=== PATIENT | male | born 1980 | race Caucasian/White ===

== ENCOUNTER 2019-03-14 08:41 | Inpatient (IN) | payer OTHER ==
[2019-03-14 09:14] VITALS: BMI 35.3
--- NOTE | 2019-03-14 10:03 | HP ---
CIWA Score - Admission Criteria [facility] Guidelines: Admission for Medically Managed Detox: Requires at least one of the followin. CIWA greater than 12 2. Seizures within the past 24 hours 3. Delirium tremens within the past 24 hours 4. Hallucinations within the past 24 hours 5. Acute intervention needed for co occurring medical disorder 6. Acute intervention needed for co occurring psychiatric disorder 7. Severe withdrawal that cannot be handled at a lower level of care (continued vomiting, continued diarrhea, abnormal vital signs) requiring intravenous medication and/or fluids 8. Admission ROS S - HPI Allergies/Adverse Reactions: Allergies Allergy/AdvReac Type Severity Reaction Status Date / Time No Known Drug Allergies Allergy Verified 03/14/19 09:09 BONELESS CHICKEN Allergy Intermediate Itching Uncoded 03/14/19 09:09 TILAPIA Allergy Intermediate Itching Uncoded 03/14/19 09:09 History of Present Illness: pt here requesting rehab for cocaine use , reports use x 1 year , denies use prior to 1 year ago , denies IVDU , current daily use 40 $ /day , latest use 2 days ago , crack cocaine 40 4/ day , this is the pt's first tx episode . Denies prior outpt program . Denies other illicits , denies ETOH tobacco : / ppd not interested in smoking cessation PMHX : asthma since teens ( [place] ) PSHx : testicular torsion teens PSych : denies . Denies current SI / HI SHx : homeless , lives in [facility] , unemployed , finances habit through theft , denies current legal issues . Exam Limitations: No Limitations - Ebola screening Have you traveled outside of the country in the last 21 days: No (N) Have you had contact with anyone from an Ebola affected area: No Do you have a fever: No - Review of Systems Constitutional: No Symptoms Reported EENT: reports: No Symptoms Reported Respiratory: reports: No Symptoms reported Cardiac: reports: No Symptoms Reported GI: reports: No Symptoms Reported : reports: No Symptoms Reported Musculoskeletal: reports: No Symptoms Reported Integumentary: reports: No Symptoms Reported Neuro: reports: No Symptoms reported Endocrine: reports: No Symptoms Reported Psychiatric: reports: Orientated x3, Agitated, Anxious Patient History - Smoking Cessation Smoking history: Current every day smoker Initiated information on smoking cessation: No - Substances abused Crack Substance route: Smoking Frequency: Daily Amount used: $30 Age of first use: 37 Date of last use: 03/12/19 Family Disease History - Family Disease History Family History: Denies Admission Physical Exam BHS - Vital Signs Vital Signs: Vital Signs - 24 hr 03/14/19 09:09 Temperature 97.7 F Pulse Rate 98 H Respiratory 18 Rate Blood Pressure 134/72 - Physical General Appearance: Yes: Disheveled, Mild Distress, Irritable, Anxious HEENTM: Yes: EOMI, Hearing grossly Normal, Normocephalic, Normal Voice Respiratory: Yes: Chest Non-Tender, Lungs Clear, Normal Breath Sounds Neck: Yes: No masses,lesions,Nodules, Trachea in good position Cardiology: Yes: Regular Rhythm, Regular Rate, S1, S2 Abdominal: Yes: Non Tender, Soft Back: Yes: Normal Inspection Musculoskeletal: Yes: full range of Motion, Back pain Extremities: Yes: Normal Range of Motion, Non-Tender Neurological: Yes: Alert, Motor Strength 5/5 Integumentary: Yes: Warm - Diagnostic (1) Cocaine abuse Current Visit: Yes Status: Acute (2) Nicotine dependence Current Visit: Yes Status: Acute Qualifiers: Nicotine product type: cigarettes Breathalyzer - Breathalyzer Breathalyzer: 0 Urine Drug Screen - Test Device Lot number: [id number] Expiration date: 12/01/20 - Control Is test valid?: Yes - Results Drug screen NEGATIVE: No Urine drug screen results: NUSRAT-Cocaine Inpatient Rehab Admission - Rehab Decision to Admit Inpatient rehab admission?: Yes - Initial Determination Are CD services needed?: Yes Free of communicable disease: Yes Not in need of hospitalization: Yes - Rehab Admission Criteria Previous failed treatment: No Poor recovery environment: Yes Comorbidities: No Lacks judgement: Yes Patient is meeting Inpatient Rehab admission criteria:: Yes
[2019-03-14] MEDS ORDERED: MENTHOL/PHENOL 1 EACH UD MM PRN (10:13)
[2019-03-14] MEDS ORDERED: MAGNESIUM HYDROX 2400MG/30ML ORAL SUSPENSION 30 ML CUP PO PRN (10:13)
[2019-03-14] MEDS ORDERED: guaiFENesin 200 MG/10 ML 10 ML UNIT-DOSE CUPS PO PRN (10:13)
[2019-03-14] MEDS ORDERED: IBUPROFEN 400 MG TABLET (FP) PO PRN (10:13)
[2019-03-14] MEDS ORDERED: NICOTINE POLACRILEX 2 MG GUM BUC PRN (10:13)
[2019-03-14] MEDS ORDERED: ACETAMINOPHEN 325 MG TABLET (FP) PO PRN (10:13)
[2019-03-14] MEDS ORDERED: hydrOXYzine PAMOATE 25 MG CAPSULE (FP) PO PRN (10:13)
[2019-03-14] MEDS ORDERED: MAG HYDROX/AL HYDROX/SIMETH 30 ML UNIT-DOSE CUP PO PRN (10:13)
[2019-03-14] MEDS ORDERED: P-EPHED 60MG/TRIPROLIDI 2.5MG TABLET PO PRN (10:13)
[2019-03-14] MEDS ORDERED: MAGNESIUM CITRATE 300 ML BOTTLE PO PRN (10:13)
[2019-03-14 15:55] LABS: URINE APPEARANCE CLEAR; URINE BILIRUBIN NEGATIVE (NEGATIVE); URINE COLOR YELLOW; URINE GLUCOSE (UA) NEGATIVE (NEGATIVE); URINE KETONE TRACE (NEGATIVE); URINE LEUK ESTERASE NEGATIVE (NEGATIVE); URINE NITRITE NEGATIVE (NEGATIVE); URINE PROTEIN NEGATIVE (NEGATIVE); URINE UROBILINOGEN 0.2 mg/dL (0.2-1.0)
[2019-03-14 15:56] LABS: HEMATOCRIT 40.2 % (35.4-49); HEMOGLOBIN 13.1 GM/dL (11.7-16.9); MCH 28.1 pg (25.7-33.7); MCHC 32.7 g/dl (32.0-35.9); MEAN CELL VOLUME 86.1 fl (80-96); MEAN PLT VOLUME 9.7 fl (7.5-11.1); PLATELET COUNT 307 K/MM3 (134-434); RBC 4.67 M/mm3 (4.00-5.60); RDW 12.1 % (11.9-15.9)
[2019-03-14 16:06] LABS: ALBUMIN 3.9 g/dl (3.4-5.0); BILIRUBIN,TOTAL 0.3 mg/dL (0.2-1); CALCIUM 8.8 mg/dL (8.5-10.1); CREATININE 0.9 mg/dL (0.55-1.3); POTASSIUM 4.3 mmol/L (3.5-5.1); TOT PROT 6.9 g/dl (6.4-8.2)
[2019-03-14] MEDS: THIAMINE HCL 100 MG TABLET (FP) PO SCH (21:57)
[2019-03-14] MEDS ORDERED: MELATONIN 5 MG TABLETS PO PRN (22:00)
[2019-03-15] MEDS: PRENATAL VITAMINS W/ FOLIC ACID TABLET (FP) PO SCH (10:06)
[2019-03-15] MEDS: THIAMINE HCL 100 MG TABLET (FP) PO SCH (21:32)
[2019-03-16] MEDS ORDERED: PT OWN MED DRAWER 7, Y5N ONE (09:23)
[2019-03-16] MEDS: PRENATAL VITAMINS W/ FOLIC ACID TABLET (FP) PO SCH (10:43)
[2019-03-16] MEDS: THIAMINE HCL 100 MG TABLET (FP) PO SCH (21:35)
[2019-03-16] MEDS: NAPROXEN 500 MG TABLET (FP) PO PRN (21:35)
[2019-03-17] MEDS: FLUTICASONE PROP 0.05% 16 GM NASAL SPRAY NS SCH ×2 (10:17→21:31)
[2019-03-17] MEDS: PRENATAL VITAMINS W/ FOLIC ACID TABLET (FP) PO SCH (10:17)
[2019-03-17] MEDS: NAPROXEN 500 MG TABLET (FP) PO PRN (14:51)
[2019-03-17] MEDS: THIAMINE HCL 100 MG TABLET (FP) PO SCH (21:31)
[2019-03-18] MEDS: FLUTICASONE PROP 0.05% 16 GM NASAL SPRAY NS SCH (10:54)
[2019-03-18] MEDS: PRENATAL VITAMINS W/ FOLIC ACID TABLET (FP) PO SCH (10:54)
[2019-03-19] MEDS: FLUTICASONE PROP 0.05% 16 GM NASAL SPRAY NS SCH ×3 (00:10→21:54)
[2019-03-19] MEDS: THIAMINE HCL 100 MG TABLET (FP) PO SCH ×2 (00:10→21:53)
[2019-03-19] MEDS: PRENATAL VITAMINS W/ FOLIC ACID TABLET (FP) PO SCH (11:01)
[2019-03-19] MEDS: NAPROXEN 500 MG TABLET (FP) PO PRN (21:54)
[2019-03-20 07:52] VITALS: BP 151/75; PULSE 53; TEMP 97.2
[2019-03-20] MEDS: FLUTICASONE PROP 0.05% 16 GM NASAL SPRAY NS SCH (10:34)
[2019-03-20] MEDS: PRENATAL VITAMINS W/ FOLIC ACID TABLET (FP) PO SCH (10:35)
--- NOTE | 2019-03-20 13:16 | PN ---
[facility] Progress Note Note: PATIENT REQUESTED TO SIGN OUT AMA. PATIENT STATED " I AM READY TO LEAVE, I DO NOT NEED REHAB RIGHT NOW". PATIENT EXPLAINED RISK FACTORS OF RELAPSE WITH SIGNING OUT AMA BUT REFUSED TO STAY IN TREATMENT. PATIENT ENCOURAGED TO ATTEND GROUP MEETINGS WITH NA AND TO FOLLOW UP WITH PCP WITHIN ONE WEEK OF D/C TO CONTINUE MEDICAL MANAGEMENT. PATIENT IS MEDICALLY STABLE AND DENIES SI/HI. PATIENT CONTINUED WITH AMA PROCESS DESPITE INTERVENTIONS. Vital Signs Temperature 97.2 F L 03/20/19 07:50 Pulse Rate 53 L 03/20/19 07:50 Respiratory Rate 03/20/19 07:50 Blood Pressure 151/75 03/20/19 07:50 O2 Sat by Pulse Oximetry (%) Home Medications Medication Instructions Recorded NK [No Known Home Medication] 03/14/19 Laboratory Tests 03/14/19 03/14/19 03/14/19 10:20 10:20 10:20 WBC 10.0 RBC 4.67 Hgb 13.1 Hct 40.2 MCV 86.1 MCH 28.1 MCHC 32.7 RDW 12.1 Plt Count 307 MPV 9.7 Sodium 142 Potassium 4.3 Chloride 111 H Carbon Dioxide 25 Anion Gap 6 L BUN 20 H Creatinine 0.9 Est GFR (CKD-EPI)AfAm 123.39 Est GFR (CKD-EPI)NonAf 106.46 Random Glucose 108 H Calcium 8.8 Total Bilirubin 0.3 AST 13 L ALT 35 Alkaline Phosphatase 80 Total Protein 6.9 Albumin 3.9 Urine Color Urine Appearance Urine pH Ur Specific [place] Urine Protein Urine Glucose (UA) Urine Ketones Urine Blood Urine Nitrite Urine Bilirubin Urine Urobilinogen Ur Leukocyte Esterase RPR Titer Nonreactive HIV 1&2 Antibody Screen HIV P24 Antigen 03/14/19 03/19/19 12:05 07:50 WBC RBC Hgb Hct MCV MCH MCHC RDW Plt Count MPV Sodium Potassium Chloride Carbon Dioxide Anion Gap BUN Creatinine Est GFR (CKD-EPI)AfAm Est GFR (CKD-EPI)NonAf Random Glucose Calcium Total Bilirubin AST ALT Alkaline Phosphatase Total Protein Albumin Urine Color Yellow Urine Appearance Clear Urine pH 5.0 Ur Specific [place] 1.034 Urine Protein Negative Urine Glucose (UA) Negative Urine Ketones Trace H Urine Blood Negative Urine Nitrite Negative Urine Bilirubin Negative Urine Urobilinogen 0.2 Ur Leukocyte Esterase Negative RPR Titer HIV 1&2 Antibody Screen Negative HIV P24 Antigen Negative
== END 2019-03-20 12:30 | disposition left against medical advice (07) | DRG 770 ==
LOC: YASAS 08:41 → Y3W 10:14
PROVIDERS: ADMIT Neuromusculoskeletal Medicine & OMM; ATTEND Neuromusculoskeletal Medicine & OMM
PROC: HZ42ZZZ Group Counseling for Substance Abuse Treatment, Cognitive-Behavioral (ICD-10-PCS; principal; 2019-03-14)
DX: F14.20 Cocaine dependence, uncomplicated (principal); F17.210 Nicotine dependence, cigarettes, uncomplicated; Z59.0 Homelessness
CPT/HCPCS: 36415; 71046-TC-FY; 80053; 81003; 85027; 86593; 87389